=== PATIENT | male | born 1995 | race Caucasian/White ===

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

== ENCOUNTER 2017-08-11 08:17 | Day surgery (SDC) | payer BC ==
[~2017-08-11] VITALS: Ht 177.8 cm; Wt 86.4 kg
[2017-08-11 08:53] VITALS: BP 140/85; PULSE 65; TEMP 99
[2017-08-11] MEDS ORDERED: OMEGA-3 1000 MG1 CAP PO (09:02)
[2017-08-11] MEDS ORDERED: PROBIOTIC-SUNMARK PO (09:02)
[2017-08-11 10:30] VITALS: BP 124/46; PULSE 87; TEMP 98.9
[2017-08-11 10:45] VITALS: BP 133/77; PULSE 89
[2017-08-11 11:00] VITALS: BP 128/66; PULSE 80
== END 2017-08-11 11:12 | disposition home or self-care (01) ==
LOC: SDCO 08:17
DX: K59.00 Constipation, unspecified (principal); R10.9 Unspecified abdominal pain; K44.9 Diaphragmatic hernia without obstruction or gangrene; J45.909 Unspecified asthma, uncomplicated; K58.9 Irritable bowel syndrome, unspecified
CPT/HCPCS: J2250; J3010; J7030

== ENCOUNTER → 2019-03-01 | Outpatient (CLI) | payer BC ==
[~2019-03-01] MED LIST changes: +OMEGA-3 1000 MG1 CAP PO; +PROBIOTIC-SUNMARK PO
== END ==
LOC: COL.RAD 14:18
DX: R10.31 Right lower quadrant pain (principal)

== ENCOUNTER 2020-01-06 22:15 | Emergency (ER) | payer BC ==
[~2020-01-06] VITALS: Ht 175.3 cm; Wt 88.6 kg
[2020-01-06 22:25] VITALS: TEMP 97.6
[2020-01-06 23:24] VITALS: BP 132/85; PULSE 73
== END 2020-01-06 23:24 | disposition home or self-care (01) ==
LOC: COL.ER 22:15
DX: S05.02XA Injury of conjunctiva and corneal abrasion without foreign body, left eye, initial encounter (principal); W22.8XXA Striking against or struck by other objects, initial encounter

== ENCOUNTER 2020-03-29 15:05 | Emergency (ER) | payer OTHER ==
[~2020-03-29] VITALS: Ht 175.3 cm; Wt 90.9 kg
[2020-03-29 15:08] VITALS: TEMP 98.8
[2020-03-29] MEDS ORDERED: LIPITOR20 MG PO (15:13)
[2020-03-29] MEDS ORDERED: CLARITIN 1010 MG/TAB PO (15:13)
[2020-03-29 15:20] LABS: BASO % 0.6 % (0.0-2.0); EOS # 0.1 (0.0-0.7); EOS % 1.3 % (0-4.0); GRAN # 3.4 (1.4-6.5); GRAN % 50.7 % (42.2-75.2); HEMATOCRIT 45.3 % (42.0-52.0); HEMOGLOBIN 16.4 g/dl (13.5-18.0); LYMPH # 2.4 (1.2-3.4); LYMPH % 36.2 % (20.0-51.0); MEAN CELL VOLUME 87 fl (80.0-100.0); MEAN CORPUSCULAR HEMOGLOBIN 31 pg (27.0-31.0); MEAN CORPUSCULAR HGB CONC 36 g/dl (33.0-37.0); MEAN PLATELET VOLUME 10.2 fl (7.4-10.4); MONO # 0.7 (0.1-0.6); MONO % 10.9 % (1.7-9.3); PLATELET COUNT 325 K/mm3 (130-400); RED BLOOD COUNT 5.24 M/mm3 (4.20-5.60); REDCELL DISTRIBUTION WIDTH-CV 12.6 % (11.5-14.5)
[2020-03-29 15:33] LABS: ALANINE AMINOTRANSFERASE 89 U/L (4-49); ALBUMIN 5.3 gm/dL (3.5-5.0); ALKALINE PHOSPHATASE 75 U/L (50-136); ANION GAP 13 mmol/L (7-16); AST,SGOT 51 U/L (15-37); BILIRUBIN,TOTAL 0.9 mg/dL (0.0-1.0); BLOOD UREA NITROGEN 10 mg/dL (9-20); CALCIUM 9.6 mg/dL (8.4-10.2); CARBON DIOXIDE 23 mmol/L (22-30); CHLORIDE 107 mmol/L (98-107); CREATININE, serum 0.99 (0.66-1.25); GLUCOSE 109 mg/dL (74-106); POTASSIUM 4.4 mmol/L (3.4-5.0); SODIUM 143 mmol/L (137-145); TOTAL PROTEIN 8.8 gm/dL (6.4-8.2)
[2020-03-29 15:37] LABS: C-REACTIVE PROTEIN < 0.5 mg/dL (0.0-0.9)
[2020-03-29] MEDS ORDERED: CLEOCIN HCL300 MG PO (16:57)
[2020-03-29] MEDS ORDERED: NORCO 325 MG-51 TAB PO (16:57)
[2020-03-29] MEDS ORDERED: PREDNISONE20 MG PO (16:57)
[2020-03-29 17:19] VITALS: BP 120/86; PULSE 86
== END 2020-03-29 17:22 | disposition home or self-care (01) ==
LOC: COL.ER 15:05
PROVIDERS: Emergency Medicine
DX: K12.2 Cellulitis and abscess of mouth (principal); F32.9 Major depressive disorder, single episode, unspecified; E78.5 Hyperlipidemia, unspecified; F17.210 Nicotine dependence, cigarettes, uncomplicated
CPT/HCPCS: J1100; J1885; J3010; J7030

== ENCOUNTER → 2021-06-02 | Outpatient (CLI) | payer OTHER ==
[~2021-06-02] MED LIST changes: +CLARITIN 1010 MG/TAB PO; +CLEOCIN HCL300 MG PO; +LIPITOR20 MG PO; +PREDNISONE20 MG PO
== END ==
LOC: COL.RAD 09:44
DX: M51.17 Intervertebral disc disorders with radiculopathy, lumbosacral region (principal); G62.9 Polyneuropathy, unspecified

== ENCOUNTER 2023-02-14 15:32 | Emergency (ER) | payer OTHER ==
[~2023-02-14] VITALS: Ht 177.8 cm; Wt 88.2 kg
[2023-02-14 15:36] VITALS: TEMP 97.8
[2023-02-14 17:03] LABS: BASO # 0.1 K/mm3 (0.0-0.2); BASO % 0.4 % (0.0-2.0); EOS # 0.1 K/mm3 (0.0-0.7); EOS % 0.7 % (0.0-4.0); GRAN # 8.8 K/mm3 (1.4-6.5); HEMOGLOBIN 16.6 g/dl (13.5-18.0); LYMPH # 1.7 K/mm3 (1.2-3.4); LYMPH % 14.7 % (20.0-51.0); MEAN CELL VOLUME 87 fl (80.0-100.0); MEAN CORPUSCULAR HEMOGLOBIN 31 pg (27-31); MEAN CORPUSCULAR HGB CONC 36 g/dl (33.0-37.0); MEAN PLATELET VOLUME 10.5 fl (7.4-10.4); MONO # 0.7 K/mm3 (0.1-0.6); PLATELET COUNT 283 K/mm3 (130-400); RED BLOOD COUNT 5.32 M/mm3 (4.20-5.60); REDCELL DISTRIBUTION WIDTH-CV 12.2 % (11.5-14.5)
[2023-02-14 17:17] LABS: ALANINE AMINOTRANSFERASE 43 U/L (0-55); ALBUMIN 5.2 gm/dL (3.5-5.0); ALKALINE PHOSPHATASE 65 U/L (40-150); ANION GAP 18 mmol/L (7-16); AST,SGOT 24 U/L (5-34); BLOOD UREA NITROGEN 8 mg/dL (9-21); CALCIUM 10.7 mg/dL (8.4-10.2); CARBON DIOXIDE 17 mmol/L (22-29); CHLORIDE 106 mmol/L (98-107); CREATININE, serum 1.04 mg/dL (0.72-1.25); GLUCOSE 95 mg/dL (70-99); POTASSIUM 3.5 mmol/L (3.5-4.5); SODIUM 141 mmol/L (136-145); TOTAL PROTEIN 8.5 gm/dL (6.2-8.1)
[2023-02-14 17:37] LABS: TSH w REFLEX 2.771 uIU/mL (0.350-4.940)
[2023-02-14 17:38] LABS: TROPONIN-I < 0.010 ng/mL (0.00-0.033)
[2023-02-14 19:14] LABS: COLLECTION METHOD CLEAN CATCH
[2023-02-14 19:19] LABS: SQUAMOUS EPITHELIAL None Seen /hpf (0-10); URINE BACTERIA None Seen /hpf (NONE SEEN); URINE RBC 0-2 /hpf (0-2)
[2023-02-14 19:20] LABS: PH 6.5 (5.0-8.5); URINE APPEARANCE Clear (CLEAR/HAZY); URINE BLOOD Negative (NEGATIVE); URINE COLOR Yellow (YELLOW); URINE GLUCOSE Negative (NEGATIVE); URINE KETONE 1+ (NEGATIVE); URINE NITRATE Negative (NEGATIVE); URINE PROTEIN(semi-quant) Negative (NEGATIVE); URINE UROBILINOGEN 0.2 E.U/dL (0.2-1.0)
[2023-02-14] MEDS ORDERED: ATARAX 25MG25 MG/TAB PO (19:56)
[2023-02-14 19:58] LABS: TRICYCLIC ANTIDEPRESS URINE NEGATIVE
[2023-02-14 20:16] VITALS: BP 158/121; PULSE 103
== END 2023-02-14 20:16 | disposition home or self-care (01) ==
LOC: COL.ER 15:32
PROVIDERS: Family Medicine
DX: F41.9 Anxiety disorder, unspecified (principal)
CPT/HCPCS: J3410

== ENCOUNTER 2023-04-12 13:30 | Outpatient (RCR) | payer OTHER ==
[~2023-04-12 13:30] MED LIST changes: +ATARAX 25MG25 MG/TAB PO; -CELEXA 20MG20 MG/TAB PO; +CELEXA40 MG PO; +LIPITOR 10MG10 MG PO; -LIPITOR20 MG PO; +LYRICA 75MG CAP75 MG PO; +NORVASC 5MG5 MG/TAB PO; +PROTONIX 40MG T40 MG PO; +TYLENOL PM EXTR1 TA1 PO; +VOLTAREN GEL 1%1 TU TP
== END 2023-04-13 | disposition home or self-care (01) ==
LOC: WSPT
DX: Z15.89 Genetic susceptibility to other disease (principal)

== ENCOUNTER 2023-05-02 13:30 | Outpatient (RCR) | payer OTHER | END 2023-05-14 | disposition home or self-care (01) | LOC: WSPT | DX: Z15.89 Genetic susceptibility to other disease (principal) ==

== ENCOUNTER → 2023-11-21 | Outpatient (CLI) | payer MEDICAID ==
[~2023-11-21] MED LIST changes: +Gadoterate 20 ML VIAL IV ONE
== END ==
LOC: COL.RAD 08:49
DX: G43.809 Other migraine, not intractable, without status migrainosus (principal)
CPT/HCPCS: A9575